=== PATIENT | female | born 1975 | race Caucasian/White ===

== ENCOUNTER 2016-07-09 15:49 | Emergency (ER) | payer OTHER ==
--- NOTE | 2016-07-09 16:28 | ER Document Report ---
ED Psych Disorder / Suicide - General Chief Complaint: Possible Overdose Stated Complaint: POSSIBLE OVERDOSE Time seen by provider: 16:27 Mode of Arrival: Medic Information source: Patient Notes: This is a 40-year-old female with a history of depression and hypertension that is brought to the emergency room by EMS after an overdose with 30 Xanax. Patient denies taking any other medicines. She states she got in a fight with her fianc who threatened to leave her and she is not been getting along with her daughter. Patient is very tearful. Patient states she does not want to kill herself at this time. Patient was given 50 g of charcoal by EMS prior to arrival - [facility] Patient complains to provider of: Overdose Onset: Just prior to arrival Onset was: Sudden Quality of pain: No pain Severity: None Pain Level: Denies Suicide Risk Factors: Depressed Situational problems related to: Daughter, Other - Fianc Suicide Attempt Method: Overdose Injury to: No: Generalized, Abdomen, Ankle, Back, Breast, Buttocks, Chest, Elbow , Epigastric, Flank, Face, Finger, Foot, Hand, Head, Hip, Knee, Leg, Lower extremity, Mouth, Neck, Pelvic, Penis, Perineum, Rectum, Shoulder, Testicle, Thigh, Throat, Trunk, Upper extremity, Vagina, Wrist Normal mood: No Associated symptoms: Depressed Similar symptoms previously: No Recently seen / treated by doctor: No - Related Data Allergies/Adverse Reactions: No Known Allergies Allergy (Unverified 07/09/16 16:56) Home Medications: Current Home Medications Alprazolam [Alprazolam] 1 tab PO DAILY 07/09/16 [History] Amlodipine Besylate [Amlodipine Besylate] 1 tab PO DAILY 07/09/16 [History] Atorvastatin Calcium 10 mg PO DAILY 07/09/16 [History] Lisinopril/Hydrochlorothiazide [Lisinopril-Hctz 20-12.5 mg Tab] 1 each PO DAILY 07/09/16 [History] Metoprolol Tartrate [Lopressor 25 mg Tablet] 25 mg PO DAILY 07/09/16 [History] Omeprazole [Omeprazole] 1 cap PO DAILY 07/09/16 [History] Sertraline HCl [Zoloft 50 mg Tablet] 50 mg PO DAILY 07/09/16 [History] Past Medical History - General Information source: Patient - Social History Smoking Status: Never Smoker Cigarette use (# per day): No Chew tobacco use (# tins/day): No Frequency of alcohol use: None Drug Abuse: None Lives with: Family Family History: Reviewed & Not Pertinent Patient has suicidal ideation: Yes Patient has homicidal ideation: No - Medical History Medical History: Negative - Past Medical History Cardiac Medical History: Reports: Hx Hypertension Pulmonary Medical History: Reports: None EENT Medical History: Reports: None Neurological Medical History: Reports: None Endocrine Medical History: Reports: None Renal/ Medical History: Reports: None Malignancy Medical History: Reports: None GI Medical History: Reports: None Musculoskeltal Medical History: Reports None Skin Medical History: Reports None Psychiatric Medical History: Reports: Hx Depression Traumatic Medical History: Reports: None Infectious Medical History: Reports: None Surgical Hx: Negative Review of Systems - Review of Systems Constitutional: No symptoms reported EENT: No symptoms reported Cardiovascular: No symptoms reported Respiratory: No symptoms reported Gastrointestinal: No symptoms reported Genitourinary: No symptoms reported Female Genitourinary: No symptoms reported Musculoskeletal: No symptoms reported Skin: No symptoms reported Hematologic/Lymphatic: No symptoms reported Neurological/Psychological: See HPI Physical Exam - Vital signs Vitals: Resp Pulse Ox 15 97 07/09/16 16:12 07/09/16 16:12 Notes: Physical exam: GENERAL: 40-year-old female, alert and oriented 3, tearful, depressed. She is in no acute distress. HEAD: Atraumatic, normocephalic. EYES: Pupils equal round and reactive to light, extraocular movements intact, sclera anicteric, conjunctiva are normal. ENT: TMs normal, nares patent, oropharynx clear without exudates. Moist mucous membranes. NECK: Normal range of motion, supple without lymphadenopathy or JVD. LUNGS: Breath sounds clear to auscultation bilaterally and equal. No wheezes rales or rhonchi. HEART: Regular rate and rhythm without murmurs, rubs or gallops. ABDOMEN: Soft, nontender, normoactive bowel sounds. No guarding, no rebound. No masses appreciated. EXTREMITIES: Normal range of motion, no pitting or edema. No clubbing or cyanosis. NEUROLOGICAL: Cranial nerves II through XII grossly intact. Normal speech, normal gait. PSYCH: Depressed and tearful SKIN: Warm, Dry, normal turgor, no rashes or lesions noted. Course - Re-evaluation Re-evalutation: 07/10/16 02:18 Patient is medically cleared for psychiatric disposition or discharge. - Vital Signs Vital signs: Temp Pulse Resp BP Pulse Ox 98 F 21 H 125/88 H 99 07/09/16 17:05 07/09/16 23:01 07/09/16 23:01 07/09/16 23:01 - Laboratory Result Diagrams: 07/09/16 16:15 07/09/16 16:15 Laboratory results interpreted by me: 07/09/16 07/09/16 16:15 16:15 Glucose 127 H Ur Leukocyte Esterase TRACE H Salicylates < 1.0 L Acetaminophen < 10 L - EKG Interpretation by Az Rate: Normal Rhythm: NSR - EKG shows normal sinus rhythm with a ventricular rate of 90, no acute ST-T wave changes Critical Care Note - Critical Care Note Total time excluding time spent on procedures (mins): 60 Discharge - Discharge Clinical Impression: overdose, suicidal attempt, depression Condition: Stable Disposition: PSYCH HOSP/UNIT
[2016-07-09 17:02] LABS: ABSOLUTE BASOPHILS # (AUTO) 0.1 10^3/uL (0.0-0.2); ABSOLUTE EOSINOPHILS # (AUTO) 0.3 10^3/uL (0.0-0.6); ABSOLUTE LYMPHOCYTES (AUTO) 1.8 10^3/uL (0.5-4.7); ABSOLUTE MONOCYTES (AUTO) 0.5 10^3/uL (0.1-1.4); ABSOLUTE NEUT (AUTO) 5.2 10^3/uL (1.7-8.2); BASOPHILS % (AUTO) 0.9 % (0-2); EOSINOPHILS % (AUTO) 3.7 % (0-6); HEMATOCRIT 41.9 % (36.0-47.0); HEMOGLOBIN 14.1 g/dL (12.0-15.5); HGB HCT DIFFERENCE 0.4; LYMPHOCYTES % (AUTO) 23.2 % (13-45); MEAN CORPUSCULAR HEMOGLOBIN 30.3 pg (27.0-33.4); MEAN CORPUSCULAR HGB CONC 33.7 g/dL (32.0-36.0); MEAN CORPUSCULAR VOLUME 90 fl (80-97); MONOCYTES % (AUTO) 6.7 % (3-13); RED BLOOD COUNT 4.65 10^6/uL (3.72-5.28); RED CELL DISTRIBUTION WIDTH 13.4 % (11.5-14.0); SEGMENTED NEUTROPHILS % (AUTO) 65.5 % (42-78); WHITE BLOOD COUNT 7.9 10^3/uL (4.0-10.5)
[2016-07-09 17:07] LABS: ALANINE AMINOTRANSFERASE 26 U/L (9-52); ALBUMIN 4.2 g/dL (3.5-5.0); ALCOHOL < 10 mg/dL (NONE DETECTED); ALKALINE PHOSPHATASE 65 U/L (38-126); ANION GAP 12 (5-19); ASPARTATE AMINO TRANSFERASE 30 U/L (14-36); BILIRUBIN,TOTAL 0.9 mg/dL (0.2-1.3); BLOOD UREA NITROGEN 8 mg/dL (7-20); CALCIUM 8.9 mg/dL (8.4-10.2); CARBON DIOXIDE 22 mmol/L (22-30); CHLORIDE 106 mmol/L (98-107); CREATININE RESULT 0.67 mg/dL (0.52-1.25); GLUCOSE 127 mg/dL (75-110); POTASSIUM 3.8 mmol/L (3.6-5.0); SODIUM 140.1 mmol/L (137-145); TOTAL PROTEIN 7.1 g/dL (6.3-8.2)
[2016-07-09 17:13] LABS: APPEARANCE,URINE SLIGHTLY-CLOUDY; BILIRUBIN,URINE NEGATIVE (NEGATIVE); GLUCOSE, URINE NEGATIVE (NEGATIVE); KETONES,URINE NEGATIVE (NEGATIVE); LEUKOCYTE ESTERASE,URINE TRACE (NEGATIVE); NITRITE,URINE NEGATIVE (NEGATIVE); PROTEIN,URINE NEGATIVE (NEGATIVE); URINE SPECIFIC GRAVITY 1.005; UROBILINOGEN,URINE NEGATIVE mg/dL (<2.0)
[2016-07-09 17:29] LABS: URINE BARBITURATES SCREEN NEGATIVE; URINE METHADONE SCREEN NEGATIVE; URINE PHENCYCLIDINE SCREEN NEGATIVE
--- NOTE | 2016-07-09 18:12 | EKG REPORT ---
SEVERITY:- BORDERLINE ECG - SINUS RHYTHM LVH BY VOLTAGE : Confirmed by: Rusty Britt MD 09-Jul-2016 18:11:56
[2016-07-09] MEDS ORDERED: HYDROCHLOROTHIAZIDE 12.5 MG CAPSULE PO ONE (19:30)
[2016-07-09] MEDS ORDERED: LANSOPRAZOLE 15 MG TAB.RAP.DR PO ONE (19:30)
[2016-07-09] MEDS ORDERED: AMLODIPINE BESYLATE 5 MG TABLET PO ONE (19:30)
[2016-07-09] MEDS ORDERED: METOPROLOL TARTRATE 25 MG TABLET PO ONE (19:30)
[2016-07-09] MEDS ORDERED: LISINOPRIL 10 MG TABLET PO ONE (19:30)
[2016-07-09] MEDS ORDERED: SERTRALINE HCL 50 MG TABLET PO ONE (19:30)
[2016-07-09] MEDS ORDERED: ATORVASTATIN CALCIUM 10 MG TABLET PO SCH (22:00)
[2016-07-10] MEDS ORDERED: LANSOPRAZOLE 15 MG TAB.RAP.DR PO SCH (08:00)
--- NOTE | 2016-07-10 09:01 | PSYCHOLOGICAL NOTE ---
Psych Note - Psych Note Psych Note: Patient presented to [facility] with a history of depression and hypertension. She was brought to the emergency room by EMS after an overdose with 30 Xanax. She states she got in a fight with her fianc who threatened to leave her and she is not been getting along with her daughter. Patient states that she got into a fight with her fianc. She continued to disclose that her fianc stated that he was going to leave her and called her a "bitch," which is something he's never said prior. She continues state that while they do fight a lot it has never gotten to that point. The patient states she had filled her prescription that day and when she turned around and saw she said "forget" and took all the pills in the bottle. This was in front of her fianc who immediately called EMS. Patient states that it was "a spur the moment thing." And that she does not have suicidal thoughts and this was "completely out of character." She felt like she "lost everyone." Because her family hates her fianc which is push them away from her. She continued to state that her ex- has poisoned her daughter's mind against her fianc and her daughter wants nothing to do with her. Patient states that she felt "I can't do anything right and it was just too much." She states that she mainly has anxiety with some depression and receives her medication Zoloft and Xanax through her PCM. She stated that a 1 month prescription of Xanax can last up to 3 months. The patient disclosed that she has spoken with her fianc and he is not leaving. She has requested that he take all medications and put them where she cannot find them intake management over distribution of her medication. Patient's mother, Rena [phone], states that her daughter has been spiraling and will not "take responsibility for her poor choices." She continued disclosed the patient does not have a relationship with her daughter and does not see that she has abandoned and her. Rena continued to disclose that the patient left her approximately 2 and half years ago and moved in and then about 6 months later left and moved in with her boyfriend. At that time however the patient left her daughter with Rena. The daughter has since moved in with her father and does not want anything to do with her mother. She states that the patient has 2 jobs and the boyfriend does not work, and the family does not agree with the relationship so tries to keep a distance. Patient's significant other, Anirudh [phone], states that they got into an argument that got out of control very quickly with things said in anger. He continued to state that it happened very quickly and is thankful he was right there when she took the medication. He stated that "the devil got into them both" and that they will have to make sure they never do that again to each other. He continued to state that he has known the patient since they were in middle school and this is "severely out of character." He states that he has removed all medications that are prescriptions and over the counter and locked them in a safe to include all the alcohol in the home; he denies their home has any weapons. He agrees to be a safety resource to ensure the patient does not have access to medications and to ensure she follows up with outpatient treatment. Patient is alert and orientated to person place time and circumstance. Mood is euthymic with congruent affect. Patient denies suicidal homicidal ideation. Patient denies auditory and visual hallucinations; no delusions are noted. Thought process is logical, organized and linear. Conversational speech is within normal rate, tone and prosody. Eye contact was well maintained. Intellectual abilities appear to be average. Attention and concentration are good. Insight, judgment, impulse control are fair. 300.00 (F 41.9) Unspecified Anxiety Disorder per history provided by patient 311 (F 32.9) Unspecified Depressive Disorder per history provided by patient V 61.10 (Z 63.0) Relationship Distress with Spouse Her Intimate Partner R/O 296.89 (F31.81) Bipolar II Disorder Impression\\plan:Patient is psychiatrically clear for discharge. Patient's significant other, Anirudh, agrees to be the patient's safety resource to include ensuring patient has no access to medications and and following through with outpatient treatment. Patient denies suicidal ideation, stating that this was a out of character spur the moment thing. Patient has not received mental health therapeutic services in past and agrees to outpatient treatment. Patient is psychiatrically cleared for discharge. Dr. Kellogg was consulted on this patient; attending physician is in agreement with disposition and recommendations.
--- NOTE | 2016-07-10 09:02 | ER Document Report ---
Doctor's Note Notes: 07/10/16 09:02 Patient seen in morning rounds. Has no complaints. Sitting in bed eating cereal. Smiling. Vital signs reviewed. Awaiting psychiatric disposition. 07/10/16 11:51 Discussed with behavioral health team and she is cleared for discharge with outpatient follow-up at [facility]. Discharge - Discharge Clinical Impression: overdose, suicidal attempt, depression Condition: Stable Disposition: HOME, SELF-CARE Additional Instructions: You were seen in the emergency department at [facility]. Please followup with [facility] for your appointment 07/22/2016 at 10AM for further management /evaluation. Please return to the emergency department for worsening of symptoms or any symptom that you deem to be concerning or life-threatening. Thank you for allowing us to be part of your care.
[2016-07-10] MEDS ORDERED: (PENDING PHARMACY ID) (Lisinopril/Hydrochlorothiazide [Lisinopril-Hctz 20-12.5 Mg Tab] 1 E PO SCH (10:00)
[2016-07-10] MEDS ORDERED: SERTRALINE HCL 50 MG TABLET PO SCH (10:00)
[2016-07-10] MEDS ORDERED: METOPROLOL TARTRATE 25 MG TABLET PO SCH (10:00)
[2016-07-10] MEDS ORDERED: HYDROCHLOROTHIAZIDE 12.5 MG CAPSULE PO SCH (10:00)
[2016-07-10] MEDS ORDERED: AMLODIPINE BESYLATE 5 MG TABLET PO SCH ×2 (10:00)
[2016-07-10] MEDS ORDERED: LISINOPRIL 10 MG TABLET PO SCH (10:00)
[2016-07-10] MEDS ORDERED: (PENDING PHARMACY ID) (Omeprazole [Omeprazole] 1 CAP) PO SCH (10:00)
[2016-07-10 12:19] VITALS: BP 139/93
== END 2016-07-10 12:39 | disposition home or self-care (01) ==
LOC: ER 15:49
DX: T42.4X2A Poisoning by benzodiazepines, intentional self-harm, initial encounter (principal); Y92.009 Unspecified place in unspecified non-institutional (private) residence as the place of occurrence of the external cause; Z63.0 Problems in relationship with spouse or partner; Z62.820 Parent-biological child conflict; F32.9 Major depressive disorder, single episode, unspecified; I10 Essential (primary) hypertension
CPT/HCPCS: 36415; 80053; 80307; 81001; 85025; 93005; 93010; 99291